=== PATIENT | female | born 1985 | race Caucasian/White ===

== ENCOUNTER 2025-04-16 09:31 | Emergency (ER) | payer MEDICAID, SELFPAY ==
[2025-04-16 09:36] VITALS: BP 133/93; PULSE 91; RESP 18; TEMP 36.7; O2SAT 97; BMI 18.8
--- NOTE | 2025-04-16 09:37 | XR_ITS ---
Examination: Foot, right, 3 views Technique: AP, oblique, lateral views foot, 3 views Date and time of exam: April 16, 2025 0942 hours INDICATIONS: Patient fell several times over the last 2 weeks with injury to foot, foot pain FINDINGS: No acute fracture No dislocation No foreign body IMPRESSION: No acute fracture
--- NOTE | 2025-04-16 09:37 | XR_ITS ---
EXAMINATION: Ankle, right 3 views . Technique: Ankle AP, oblique, lateral 3 views Date and time of exam: April 16, 2025 0942 hours INDICATIONS: Patient fell several times in the last 2 weeks with injury to the ankle, ankle pain. FINDINGS: No fracture or dislocation No foreign body IMPRESSION: No acute fracture
--- NOTE | 2025-04-16 11:05 | EDNOTE_ITS ---
Lower Extremity Injury RME/HPI General Chief Complaint: Ankle/Foot Injury Stated Complaint: RIGHT FOOT INJURY / PAIN X LAST NIGHT Time Seen by Provider: 04/16/25 09:34 Arrival date/time: 04/16/25 09:31 39-year-old female presents emergency department today with complaints of injury to her right foot and ankle approximate 2 weeks ago patient reports that she reinjured her right foot last night. Limitations: no limitations Related Data Previous Rx's ?Medication ?Instructions ?Recorded ibuprofen 600 mg tablet 600 mg PO Q6H #30 tabs 04/16 Allergies Allergy/AdvReac Type Severity Reaction Status Date / Time No Known Allergies Allergy Verified 04/16/25 09:34 Review of Systems Review of Systems Systems Reviewed: All systems reviewed, normal except as documented Constitutional Constitutional: Reports system reviewed and no additional complaints, except as documented, Denies fever(s) and Denies headache(s) Eyes Eyes: Reports system reviewed and no additional complaints, except as documented and Denies blurry vision ENT Ears, Nose, Mouth, and Throat: Reports system reviewed and no additional complaints, except as documented, Denies headache(s), Denies nasal congestion and Denies nasal discharge Cardiovascular Cardiovascular: Reports system reviewed and no additional complaints, except as documented, Denies chest pain and Denies dyspnea Respiratory Respiratory: Reports system reviewed and no additional complaints, except as documented, Denies chest congestion, Denies cough and Denies dyspnea Gastrointestinal Gastrointestinal: Reports system reviewed and no additional complaints, except as documented and Denies abdominal pain Musculoskeletal Musculoskeletal: Reports system reviewed and no additional complaints, except as documented, Reports abnormal gait, Reports arthralgias, Denies deformity, Denies numbness, Reports stiffness and Denies tingling Integumentary/Breasts Skin/Breast: Reports system reviewed and no additional complaints, except as documented and Denies rash Neurologic Neurologic: Reports system reviewed and no additional complaints, except as documented, Reports as per HPI, Reports abnormal gait, Denies headache(s), Denies numbness and Denies tingling Past Medical History Social History SMOKING STATUS: Current every day smoker ED Exam General Limitations: Present no limitations General appearance: Present alert and in no apparent distress Head Head exam: Present atraumatic, normocephalic and normal inspection Eye Eye exam: Present normal appearance, PERRL and EOMI ENT ENT exam: Present normal exam, normal oropharynx and mucous membranes moist Neck Neck exam: Present normal inspection, full ROM and trachea midline Chest Chest inspection: Present normal inspection and symmetric chest wall rise Respiratory Respiratory exam: Present normal lung sounds bilaterally Cardiovascular Cardiovascular exam: Present regular rate, normal rhythm and normal heart sounds Abdominal Exam Abdominal exam: Present soft and normal bowel sounds Extremities Exam Extremities exam: Present normal inspection, full ROM, tenderness, normal capi llary refill and joint swelling; Absent pedal edema or calf tenderness Back Exam Back exam: Present normal inspection and full ROM Neurological Exam Neurological exam: Present alert, oriented X3, CN II-XII intact, normal gait and reflexes normal; Absent motor sensory deficit Psychiatric Psychiatric exam: Present normal affect and normal mood Skin Skin exam: Present warm, dry, intact and normal color Course Quality Measures none Orders Category Date Time Status XR ankle comp RT min 3V Stat Exams 04/16/25 09:37 Completed XR foot comp RT min 3V Stat Exams 04/16/25 09:37 Completed Vital Signs Vital signs: Vital Signs Temperature 98.0 F 04/16/25 09:36 Pulse Rate 91 04/16/25 09:36 Respiratory Rate 18 04/16/25 09:36 Blood Pressure 133/93 H 04/16/25 09:36 Pulse Oximetry (%) 97 04/16/25 09:36 Oxygen Delivery Method Room Air 04/16/25 09:36 o2 sat 97% r.a wnl Extremity Injury, Lower MDM Narrative MDM Narrative:: 39-year-old female presents emergency department today with complaints of injury to her right foot and ankle approximate 2 weeks ago patient reports that she reinjured her right foot last night. On exam patient well-appearing patient's not appear toxic no acute distress Imaging obtained no acute fracture dislocation noted Patient placed in Bam wrap given crutches Patient discharged home in no distress to follow-up with primary care doctor in the next 24 to 48 hours and for any worsening symptoms to return to the ER immediately Patient data External records reviewed:: [facility] previous records Clinical information provided by:: patient Social determinants that could affect healthcare access:: none Patient has the following chronic illnesses:: None How is presenting disease/condition affected by chronic disease/condition?: no chronic disease Evaluation data The following diagnostics were reviewed and interpreted by me:: radiology exam(s) Lab and/or radiology exams considered but not ordered:: Radiology obtain Interpretation Summary: Reviewed by me Medications / Prescriptions Medications or Prescriptions considered but not ordered:: Given Medication administrations:: Given Consultations Consultation(s) initiated? (list below): No Diagnosis Extremity Injury, Lower Differential Diagnosis: ankle sprain and strain and ankle fracture Most likely diagnosis given after review of the tests above:: Ankle sprain Admission Indicated Admission indicated?: not indicated Admission Request Was there a request for admission?: No Disposition Plan Disposition Plan: Discharge Discharge Attestation Discharge Attestation: The patient and all family members were given an opportunity to ask questions and understood the discharge instructions. Discharge instructions specifically effects, indications for sooner follow up or return to the emergency department, and the expected course of current diagnosis. Patient condition: Stable Discharge Plan Plan Patient Disposition: HOME (Self Care) Discharge Disposition comment: Stable Prescriptions/Referrals Prescriptions/Med Rec: New ibuprofen 600 mg tablet 600 mg PO Q6H Qty: 30 0RF Referrals: No Primary/Family,Physician [Primary Care Provider] - In 1 week Problem List Clinical Impression: Ankle sprain and strain Patient/Caregiver Discharge Instructions Additional Instructions: Please follow up with your primary care doctor in the next 24-48hrs for any worsening symptoms return here immediately Print Language: Slovenian Stand Alone Forms: [facility] Award Info., Work/School Release, Patient Portal Info Letter BEATRIZ/YAMILET Supervising Physician BEATRIZ/YAMILET Supervising Physician: Dr Honeycutt
== END 2025-04-16 11:32 | disposition home or self-care (01) ==
PROVIDERS: Emergency Provider Emergency Medicine
DX: S93.401A Sprain of unspecified ligament of right ankle, initial encounter (principal); X58.XXXA Exposure to other specified factors, initial encounter
CPT/HCPCS: 73610; 73630; 99283

== ENCOUNTER 2025-07-21 23:51 | Emergency (ER) | payer MEDICAID, SELFPAY ==
[2025-07-21 23:52] VITALS: BMI 19.7
[2025-07-21 23:57] VITALS: BP 155/113; PULSE 93; RESP 18; TEMP 36.9; O2SAT 100
--- NOTE | 2025-07-22 00:03 | XR_ITS ---
Examination: Pelvic ultrasound, transabdominal, complete Technique: Transabdominal ultrasound of the pelvis performed using grayscale imaging Date and time of exam: July 22, 2025, 0050 hrs. Indications: Vaginal bleeding beginning yesterday Findings: Uterus 8.4 cm, endometrial stripe 0.5 cm, no uterine mass or intrauterine gestation. Right ovary 3.6 cm arterial flow. Left ovary 2.4 cm arterial flow. Mild fluid adjacent to the left ovary Impression: No uterine mass or intrauterine gestation Mild fluid adjacent to the left ovary, consider recent rupture of the left ovarian cyst, pelvic inflammatory disease, clinical correlation advised.
--- NOTE | 2025-07-22 00:04 | PD.EDRME ---
Rapid Medical Screening Exam RME Arrival date/time: 07/21/25 23:51 This is a case of 40-year-old female with no medical history came into the emergency room due to vaginal bleeding with blood clots patient have history of blood transfusion due to vaginal bleeding persistence of the symptoms this patient decided to sought consult here in the emergency room Chief Complaint: Vaginal Bleeding Time Seen by Provider: 07/21/25 23:58 Vital signs: Vital Signs Temperature 98.5 F 07/21/25 23:57 Pulse Rate 93 07/21/25 23:57 Respiratory Rate 18 07/21/25 23:57 Blood Pressure 155/113 H 07/21/25 23:57 Pulse Oximetry (%) 100 07/21/25 23:57
[2025-07-22 00:28] LABS: Basophils # (Auto) 0.1 Thou/mm3 (0.0-0.2); Basophils % (Auto) 1 % (0-2.5); Eosinophils # (Auto) 0.3 Thou/mm3 (0.0-0.5); Eosinophils % (Auto) 3 % (0-10); Hematocrit 33.3 % (36.0-46.0); Hemoglobin 11.1 g/dL (12.0-16.0); Immature Granulocytes Auto 0.01 Thou/mm3 (0.00-0.00); Lymphocytes # (Auto) 2.4 Thou/mm3 (1.0-4.8); Lymphocytes % (Auto) 32 % (10-50); Mean Corpuscular HGB Conc 33.3 g/dl (31.0-37.0); Mean Corpuscular Hemoglobin 28.9 pg (25.0-35.0); Mean Corpuscular Volume 87 fL (80-100); Monocytes # (Auto) 0.5 Thou/mm3 (0.0-0.8); Monocytes % (Auto) 7 % (0-12); Neutrophils # (Auto) 4.1 Thou/mm3 (1.8-7.7); Neutrophils % (Auto) 56 % (37-80); Nucleated Red Blood Cell # 0.00 Thou/mm3 (0.00-0.00); Nucleated Red Blood Cell % 0 /100 WBC (0); Platelet Count 351 Thou/mm3 (140-440); RDW Standard Deviation 45.1 fL (36.4-46.3); Red Blood Count 3.84 Miln/mm3 (4.00-5.20); White Blood Count 7.3 Thou/mm3 (3.6-11.0)
[2025-07-22 00:47] LABS: Alanine Aminotransferase 11 U/L (10-49); Albumin, Serum 4.2 gm/dL (3.5-5.0); Albumin/Globulin Ratio 1.9 (1.2-2.2); Alkaline Phosphatase 60 U/L (46-116); Anion Gap 9 (7-16); Aspartate Amino Transferase 20 U/L (0-34); BUN/Creatinine Ratio 12 Ratio (12-20); Beta HCG,Quantitative < 0 mIU/mL (<5.0); Bilirubin,Total 0.2 mg/dL (0.3-1.2); Blood Urea Nitrogen 12 mg/dL (9-23); Calcium 9.1 mg/dL (8.3-10.6); Calcium (Corrected) 9.1 mg/dL (8.5-10.1); Carbon Dioxide 27.9 mMol/L (20.0-31.0); Chloride 105 mMol/L (98-107); Creatinine (Component) 1.0 mg/dL (0.6-1.3); Estimated Creatinine Clearance 62.2 mL/min (>60); Globulin 2.2 gm/dL (2.3-3.5); Glucose 95 mg/dL (74-106); Osmolality,Calculated 282 (275-295); Potassium 3.5 mMol/L (3.4-5.1); Sodium 142 mMol/L (136-145); Total Protein 6.4 gm/dL (5.7-8.2); eGFR > 60 See Note
--- NOTE | 2025-07-22 01:23 | EDNOTE_ITS ---
ED OB Contraction Preg RMI/HPI General Chief complaint: Vaginal Bleeding Stated complaint: VAGINAL BLEEDING Time Seen by Provider: 07/21/25 23:58 Source: patient Arrival date/time: 07/21/25 23:51 Mode of arrival: ambulatory Limitations: no limitations RME / HPI RME / HPI Narrative: 07/21/25 23:51 This is a case of 40-year-old female with no medical history came into the emergency room due to vaginal bleeding with blood clots patient have history of blood transfusion due to vaginal bleeding persistence of the symptoms this patient decided to sought consult here in the emergency room/ Dr. Becerril?s Main ED Evaluation: 40-year-old female, ambulatory, accompanied by spouse, presents to the ED via private vehicle for evaluation of acute vaginal bleeding. Patient reports onset of bleeding earlier today, with significant worsening approximately 3 hours prior to arrival. She became alarmed when she saturated three overnight pads and a toddler-sized diaper within that time frame, prompting her decision to seek emergency care. She endorses a history of ovarian cysts but denies any prior history of abnormal uterine bleeding. She describes her menstrual cycles as regular, with her last normal cycle occurring approximately one month ago. She denies associated abdominal pain, dizziness, syncope, chest pain, shortness of breath, fevers, or other complaints. No other acute medical concerns were reported at the time of presentation. Related Data Previous Rx's ?Medication ?Instructions ?Recorded ibuprofen 600 mg tablet 600 mg PO Q6H #30 tabs 04/16 Allergies Allergy/AdvReac Type Severity Reaction Status Date / Time No Known Allergies Allergy Verified 07/21/25 23:52 Review of Systems Review of Systems Systems Reviewed: All systems reviewed, normal except as documented Past Medical History Social History SMOKING STATUS: Current every day smoker ED Exam Narrative Physical exam: Generally patient is alert and in no obvious distress, heart regular rate and rhythm, lungs clear to auscultation equal bilaterally, abdomen soft bowel sounds present nondistended nontender, skin is warm and dry, neurologic exam [place] Coma Scale is 15 General Limitations: Present no limitations Course Quality Measures none Orders Category Date Time Status US pelvic complete Stat Exams 07/22/25 00:03 Taken Antibody Identification Stat Lab 07/22/25 00:10 Completed Beta HCG,Quantitative Stat Lab 07/22/25 00:10 Completed CBC Stat Lab 07/22/25 00:10 Completed CMP [Comprehensive Metabolic Panel] Stat Lab 07/22/25 00:10 Completed Type and Screen Stat Lab 07/22/25 00:10 Completed Urinalysis Stat Lab 07/22/25 00:03 Ordered Vital Signs Vital signs: Vital Signs Temperature 98.5 F 07/21/25 23:57 Pulse Rate 93 07/21/25 23:57 Respiratory Rate 18 07/21/25 23:57 Blood Pressure 155/113 H 07/21/25 23:57 Pulse Oximetry (%) 100 07/21/25 23:57 Vaginal Bleeding MDM Narrative MDM Narrative: Scribe Attestation: I, Adelia South, am scribing for and in the presence of Dr. Becerril. Provider Notation: Although this document has been carefully reviewed, there may still be some phonetic and other typographical errors. These errors are purely grammatical due to imperfections in the software program and should not be construed in any way to compromise the substance of the patient's medical care during this visit. I interpreted all labs. is negative. Hemoglobin is 11. Platelet count is normal. Pelvic ultrasound is pending interpretation by radiologist. Patient has a follow-up with her [facility] physician. Keep well-hydrated. Return to ER as needed or if condition worsens. Differential diagnosis: , uterine fibroids, dysfunctional uterine bleeding, menses Patient data External records reviewed:: [facility] [place] previous records Clinical information provided by:: patient and spouse Social determinants that could affect healthcare access:: none Patient has the following chronic illnesses:: na How is presenting disease/condition affected by chronic disease/condition?: no chronic disease Evaluation data The following diagnostics were reviewed and interpreted by me:: lab results and radiology exam(s) Lab and/or radiology exams considered but not ordered:: na Interpretation Summary: Refer to [facility] Medications / Prescriptions Medications or Prescriptions considered but not ordered:: na Medication administrations:: as above, if any Consultations Consultation(s) initiated? (list below): No Diagnosis Vaginal Bleeding Differential Diagnosis: dysfunctional uterine bleeding, menometrorrhagia and vaginal bleeding Most likely diagnosis given after review of the tests above:: See clinical impression below Admission Indicated Admission indicated?: not indicated Admission Request Was there a request for admission?: No Disposition Plan Disposition Plan: Discharge Discharge Attestation Discharge Attestation: The patient and all family members were given an opportunity to ask questions and understood the discharge instructions. Discharge instructions specifically effects, indications for sooner follow up or return to the emergency department, and the expected course of current diagnosis. Patient condition: Stable Discharge Plan Plan Patient Disposition: HOME (Self Care) Prescriptions/Referrals Prescriptions/Med Rec: No Action ibuprofen 600 mg tablet 600 mg PO Q6H Qty: 30 0RF Referrals: No Primary/Family,Physician [Primary Care Provider] - In 1 week Problem List Clinical Impression: Vaginal bleeding Patient/Caregiver Discharge Instructions Additional Instructions: Follow-up with your [facility] physician as needed. Print Language: Kyrgyz Stand Alone Forms: [facility] Award Info., Patient Portal Info Letter
--- NOTE | 2025-07-22 02:03 | PRELIM_ITS ---
Pelvic ultrasound (transabdominal) with Doppler. July 22, 2025 at 0050 hours Clinical history: Vaginal bleeding.LMP 06/30/2025. HCG negative. Findings: The uterus is retroflexed, measuring 8.4 x 5.1 x 5.6 cm. The endometrium is unremarkable and measures 0.5 cm. The right ovary measures 3.6 x 1.7 x 1.8 cm. The left ovary measures 2.4 x 1.8 x 2.3 cm. There is small amount of fluid adjacent to the left ovary. Both ovaries demonstrate color flow and spectral waveforms on Doppler evaluation. There is no adnexal mass. Impression: Normal appearing uterus and ovaries. Small amount of fluid adjacent to the left ovary. Report Electronically Signed By: Serg Lockwood 07/22/2025 2:02:39 AM [EST]
== END 2025-07-22 01:59 | disposition home or self-care (01) ==
PROVIDERS: Nurse Practitioner Family; Emergency Provider Emergency Medicine
DX: N93.9 Abnormal uterine and vaginal bleeding, unspecified (principal)
CPT/HCPCS: 36415; 76856; 80053; 81001; 84702; 85025; 86850; 86870; 86900; 86901; 99283